=== PATIENT | male | born 1960 | race Caucasian/White ===

== ENCOUNTER 2018-10-13 15:40 | Emergency (ER) | payer BC, OTHER ==
[2018-10-13] MEDS ORDERED: Sodium Chloride 0.9% 10 ML Syringe FLUSH PRN (15:48)
--- NOTE | 2018-10-13 16:06 | CT ---
Clinical history: 58-year-old male with "stroke" clinically (drooling and flaccid left face). Ex-smoker with severe cardiac disease. Scan technique: Volume acquisition of data emergency unenhanced CT scan of the head and brain obtained with the patient was lying supine on the Siemens multi slice scanner [place], [place]. All data archived in the PACS system for storage, reformatting axial/sagittal/coronal planes and study. No previous exams this institution. Interpretation: Abnormal. 1. Bilateral cerebral cortical atrophy. Underlying mirror-image normal ventricular system. Physiologic midline pineal gland and symmetric choroid plexus calcifications. 2. *Tiny scattered areas of decreased attenuation throughout the basal ganglia bilaterally (particularly prominent anterior limb and genu of the internal capsule, on the right). Larger isolated ischemic infarct involving the periphery, convexity, left frontal lobe. 3. No sign of acute intracerebral/intraventricular/subarachnoid bleed. 4. No supratentorial or posterior fossa mass lesion. Atrophy of the vermis cerebellum. Brainstem unremarkable. 5. Uniformly thick bony calvarium without sign of skull fracture, underlying brain contusion or abnormal extracerebral/intracranial epidural or subdural hematoma. 6. Symmetric clear pneumatization of the paranasal and mastoid sinuses.. CONCLUSION: Multi-infarct ischemic disease (left parietal lobe and basal ganglia, bilaterally). No sign of acute intracranial bleed. No intracranial mass or hydrocephalus.
[2018-10-13 16:24] LABS: CHLORIDE,CL 97 mmol/L (101-111); SODIUM,NA 135 mmol/L (135-145)
--- NOTE | 2018-10-13 16:39 | CR ---
Clinical history: 58-year-old male emergency department (stroke protocol). Ex-smoker with cardiac disease. Interpretation: AP portable chest film (ED) reveals oxygen cannula, external rn cardiac rehab leads, and cardiac pacemaker (leads intact) that is new since comparison film 25 December 2013. Chronic cardiomegaly without cephalization of vascular flow or alveolar edema. Dependent new consolidative process silhouetting the left hemidiaphragm (aspiration? Old pneumonia or pleural parenchymal fibrosis? Interval improvement appearance of the contralateral right lower lobe since December 2013. Note: Asymmetric hilar masslike fullness on the right and recommend CT scan with contrast when patient stabilizes. CONCLUSION: Cardiomegaly without current signs of CHF. Abnormality left lower lobe and suspicious right hilum.
[2018-10-13 16:58] VITALS: BP 141/72
--- NOTE | 2018-10-19 04:09 | EDM.PDOC ---
Scribed by Michelle Lemons 10/13/18 [id number] for Edith Irwin NP ED HPI GENERAL MEDICAL PROBLEM - General Chief Complaint: Neuro Symptoms/Deficits Stated Complaint: STROKE Time Seen by Provider: 10/13/18 16:10 Source of Information: Reports: Patient, Family, RN, RN Notes Reviewed, Other ( Clinic staff) - History of Present Illness INITIAL COMMENTS - FREE TEXT/NARRATIVE: Pt to ER per wheelchair from [facility] with Clinic staff. Clinic staff states the patient was 1 hour late for his appointment and when he arrived he was drooling and aphasic. Clinic nurse states she talked to the patient on the phone 1 week ago and was able to completely understand his speaking. Next of kin, sister in law, was called. She states he lives alone. She states she last talked to him last night on the phone and his speech was normal. She states he has had a stroke in the past. Eye gaze to the right bilaterally. Onset: Today, Sudden - Related Data Allergies Allergy/AdvReac Type Severity Reaction Status Date / Time No Known Allergies Allergy Verified 12/18/13 09:37 Home Meds: Home Meds Albuterol [Ventolin HFA] 2 puff INH Q4H PRN 12/18/13 [History] OXcarbazepine [Oxcarbazepine] 300 mg PO BID 12/18/13 [History] Pantoprazole Sodium [Protonix] 20 mg PO DAILY 12/18/13 [History] QUEtiapine [SEROquel] 100 mg PO BID 12/18/13 [History] atorvaSTATin [Lipitor] 20 mg PO DAILY 12/18/13 [History] clonazePAM [Clonazepam] 1 mg PO BID PRN 12/18/13 [History] Carvedilol [Coreg] 3.125 mg PO BIDM #60 tablet 12/26/13 [Rx] Furosemide [Lasix] 20 mg PO BID #60 tab 12/26/13 [Rx] Potassium Chloride [Klor-Con 10] 20 meq PO BID #60 tablet.er 12/26/13 [Rx] Warfarin [Coumadin] 4 mg PO DAILY #30 tab 12/26/13 [Rx] Past Medical History Cardiovascular History: Reports: CAD, Cardiomyopathy, Heart Failure, High Cholesterol, Hypertension, Other (See Below) (cardiac LV ejections fraction 21- 40%. Mural thrombus of left ventricle.) Respiratory History: Reports: Other (See Below) (pleural effusion on right.) Gastrointestinal History: Reports: Other (See Below) (gastritis and duodenitis) Musculoskeletal History: Reports: Osteoporosis Psychiatric History: Reports: Anxiety Hematologic History: Reports: Other (See Below) (wardarin anticoagulation) - Past Surgical History GI Surgical History: Reports: Colonoscopy Social & Family History - Living Situation & Occupation Living situation: Reports: Single Occupation: Unemployed ED ROS GENERAL - Review of Systems Review Of Systems: ROS reveals no pertinent complaints other than HPI. ED EXAM, NEURO - Physical Exam Exam: See Below Exam Limited By: Altered Mental Status General Appearance: Alert, Moderate Distress Eye Exam: Bilateral Eye: PERRL (3 sluggish), Other (Right gaze) Ears: Normal External Exam, Hearing Grossly Normal Nose: Normal Inspection Throat/Mouth: Other (Drooling from left side) Head Exam: Atraumatic, Normocephalic Neck: Normal Inspection, Supple, Non-Tender, Full Range of Motion Respiratory/Chest: No Respiratory Distress, No Accessory Muscle Use, Chest Non- Tender, Crackles (bases bilaterally) Cardiovascular: Normal Peripheral Pulses, Regular Rate, Rhythm, No Edema, No Gallop, No JVD, No Murmur, No Rub GI/Abdominal: Normal Bowel Sounds, Soft, Non-Tender, Distended (Male) Exam: Deferred Rectal (Males) Exam: Deferred Neurological: Alert, Abnormal Finger to Nose, Abnormal Motor, Straight Leg Raise (L) (drift) Back Exam: Normal Inspection, Decreased Range of Motion Extremities: Normal Inspection, Limited Range of Motion (Left arm, left leg) Psychiatric: Anxious Skin Exam: Warm, Dry, Intact, Normal Color, No Rash Course - Vital Signs Last Recorded V/S: Last Vital Signs Temp 97.2 F 10/13/18 16:10 Pulse 82 10/13/18 16:10 Resp 22 H 10/13/18 16:10 BP 141/72 H 10/13/18 16:10 Pulse Ox 84 L 10/13/18 16:10 - Orders/Labs/Meds Labs: Laboratory Tests 10/13/18 10/13/18 10/13/18 Range/Units 15:50 15:50 15:50 WBC 10.8 H (5.0-10.0) 10^3/uL RBC 4.88 (4.6-6.2) 10^6/uL Hgb 14.3 (14.0-18.0) g/dL Hct 46.0 (40.0-54.0) % MCV 94.3 (80-100) fL MCH 29.3 (27.0-34.0) pg MCHC 31.1 L (33.0-35.0) g/dL Plt Count 232 (150-450) 10^3/uL Neut % (Auto) 75.1 (42.2-75.2) % Lymph % (Auto) 10.1 L (20.5-50.1) % [place] % (Auto) 12.9 H (2-8) % Eos % (Auto) 1.5 (1.0-3.0) % Baso % (Auto) 0.4 (0.0-1.0) % PT 13.2 H D (9.0-12.0) SEC INR 1.3 H (0.9-1.2) Sodium 135 (135-145) mmol/L Potassium 5.0 (3.6-5.0) mmol/L Chloride 97 L (101-111) mmol/L Carbon Dioxide 28.0 (21.0-31.0) mmol/L Anion Gap 15.0 BUN 28 H (7-18) mg/dL Creatinine 1.0 (0.6-1.3) mg/dL Est Cr Clr Drug Dosing TNP Estimated GFR (MDRD) > 60 BUN/Creatinine Ratio 28.00 Glucose 105 (74-105) mg/dL POC Glucose (70-105) mg/dl Lactic Acid (0.5-2.2) mmol/L Calcium 8.4 (8.4-10.2) mg/dl Total Bilirubin 0.6 (0.2-1.0) mg/dL AST 29 (10-42) IU/L ALT 42 (10-60) IU/L Alkaline Phosphatase 49 (42-121) IU/L Ammonia (11-35) umol/L Troponin I 0.03 H* (0.00-0.02) ng/ml B-Natriuretic Peptide (0-100) pg/ml Total Protein 6.7 (6.7-8.2) g/dl Albumin 3.1 L (3.2-5.5) g/dl Globulin 3.6 Albumin/Globulin Ratio 0.86 Urine Color (YELLOW) Urine Appearance (CLEAR) Urine pH (5.0-9.0) Ur Specific [place] (1.005-1.030) Urine Protein (NEGATIVE) Urine Glucose (UA) (NEGATIVE) Urine Ketones (NEGATIVE) Urine Occult Blood (NEGATIVE) Urine Nitrite (NEGATIVE) Urine Bilirubin (NEGATIVE) Urine Urobilinogen (0.2-1.0) mg/dL Ur Leukocyte Esterase (NEGATIVE) Urine Opiates Screen (NEGATIVE) Ur Oxycodone Screen (NEGATIVE) Urine Methadone Screen (NEGATIVE) Ur Barbiturates Screen (NEGATIVE) U Tricyclic Antidepress (NEGATIVE) Ur Phencyclidine Scrn (NEGATIVE) Ur Amphetamine Screen (NEGATIVE) U Methamphetamines Scrn (NEGATIVE) Urine MDMA Screen (NEGATIVE) U Benzodiazepines Scrn (NEGATIVE) Urine Cocaine Screen (NEGATIVE) U Marijuana (THC) Screen (NEGATIVE) Ethyl Alcohol < 5 mg/dL 10/13/18 10/13/18 10/13/18 Range/Units 15:50 15:50 15:56 WBC (5.0-10.0) 10^3/uL RBC (4.6-6.2) 10^6/uL Hgb (14.0-18.0) g/dL Hct (40.0-54.0) % MCV (80-100) fL MCH (27.0-34.0) pg MCHC (33.0-35.0) g/dL Plt Count (150-450) 10^3/uL Neut % (Auto) (42.2-75.2) % Lymph % (Auto) (20.5-50.1) % [place] % (Auto) (2-8) % Eos % (Auto) (1.0-3.0) % Baso % (Auto) (0.0-1.0) % PT (9.0-12.0) SEC INR (0.9-1.2) Sodium (135-145) mmol/L Potassium (3.6-5.0) mmol/L Chloride (101-111) mmol/L Carbon Dioxide (21.0-31.0) mmol/L Anion Gap BUN (7-18) mg/dL Creatinine (0.6-1.3) mg/dL Est Cr Clr Drug Dosing Estimated GFR (MDRD) BUN/Creatinine Ratio Glucose (74-105) mg/dL POC Glucose 106 H (70-105) mg/dl Lactic Acid 1.5 (0.5-2.2) mmol/L Calcium (8.4-10.2) mg/dl Total Bilirubin (0.2-1.0) mg/dL AST (10-42) IU/L ALT (10-60) IU/L Alkaline Phosphatase (42-121) IU/L Ammonia (11-35) umol/L Troponin I (0.00-0.02) ng/ml B-Natriuretic Peptide 761 H (0-100) pg/ml Total Protein (6.7-8.2) g/dl Albumin (3.2-5.5) g/dl Globulin Albumin/Globulin Ratio Urine Color (YELLOW) Urine Appearance (CLEAR) Urine pH (5.0-9.0) Ur Specific [place] (1.005-1.030) Urine Protein (NEGATIVE) Urine Glucose (UA) (NEGATIVE) Urine Ketones (NEGATIVE) Urine Occult Blood (NEGATIVE) Urine Nitrite (NEGATIVE) Urine Bilirubin (NEGATIVE) Urine Urobilinogen (0.2-1.0) mg/dL Ur Leukocyte Esterase (NEGATIVE) Urine Opiates Screen (NEGATIVE) Ur Oxycodone Screen (NEGATIVE) Urine Methadone Screen (NEGATIVE) Ur Barbiturates Screen (NEGATIVE) U Tricyclic Antidepress (NEGATIVE) Ur Phencyclidine Scrn (NEGATIVE) Ur Amphetamine Screen (NEGATIVE) U Methamphetamines Scrn (NEGATIVE) Urine MDMA Screen (NEGATIVE) U Benzodiazepines Scrn (NEGATIVE) Urine Cocaine Screen (NEGATIVE) U Marijuana (THC) Screen (NEGATIVE) Ethyl Alcohol mg/dL 10/13/18 10/13/18 10/13/18 Range/Units 16:10 16:10 16:51 WBC (5.0-10.0) 10^3/uL RBC (4.6-6.2) 10^6/uL Hgb (14.0-18.0) g/dL Hct (40.0-54.0) % MCV (80-100) fL MCH (27.0-34.0) pg MCHC (33.0-35.0) g/dL Plt Count (150-450) 10^3/uL Neut % (Auto) (42.2-75.2) % Lymph % (Auto) (20.5-50.1) % [place] % (Auto) (2-8) % Eos % (Auto) (1.0-3.0) % Baso % (Auto) (0.0-1.0) % PT (9.0-12.0) SEC INR (0.9-1.2) Sodium (135-145) mmol/L Potassium (3.6-5.0) mmol/L Chloride (101-111) mmol/L Carbon Dioxide (21.0-31.0) mmol/L Anion Gap BUN (7-18) mg/dL Creatinine (0.6-1.3) mg/dL Est Cr Clr Drug Dosing Estimated GFR (MDRD) BUN/Creatinine Ratio Glucose (74-105) mg/dL POC Glucose (70-105) mg/dl Lactic Acid (0.5-2.2) mmol/L Calcium (8.4-10.2) mg/dl Total Bilirubin (0.2-1.0) mg/dL AST (10-42) IU/L ALT (10-60) IU/L Alkaline Phosphatase (42-121) IU/L Ammonia 35 (11-35) umol/L Troponin I (0.00-0.02) ng/ml B-Natriuretic Peptide (0-100) pg/ml Total Protein (6.7-8.2) g/dl Albumin (3.2-5.5) g/dl Globulin Albumin/Globulin Ratio Urine Color Light yellow (YELLOW) Urine Appearance Clear (CLEAR) Urine pH 5.5 (5.0-9.0) Ur Specific [place] 1.010 (1.005-1.030) Urine Protein Negative (NEGATIVE) Urine Glucose (UA) Negative (NEGATIVE) Urine Ketones Negative (NEGATIVE) Urine Occult Blood Negative (NEGATIVE) Urine Nitrite Negative (NEGATIVE) Urine Bilirubin Negative (NEGATIVE) Urine Urobilinogen 0.2 (0.2-1.0) mg/dL Ur Leukocyte Esterase Negative (NEGATIVE) Urine Opiates Screen Negative (NEGATIVE) Ur Oxycodone Screen Negative (NEGATIVE) Urine Methadone Screen Negative (NEGATIVE) Ur Barbiturates Screen Negative (NEGATIVE) U Tricyclic Antidepress Negative (NEGATIVE) Ur Phencyclidine Scrn Negative (NEGATIVE) Ur Amphetamine Screen Negative (NEGATIVE) U Methamphetamines Scrn Negative (NEGATIVE) Urine MDMA Screen Negative (NEGATIVE) U Benzodiazepines Scrn Negative (NEGATIVE) Urine Cocaine Screen Negative (NEGATIVE) U Marijuana (THC) Screen Negative (NEGATIVE) Ethyl Alcohol mg/dL Meds: Medications Discontinued Medications Generic Name Dose Route Start Last Admin Trade Name Maddi PRN Reason Stop Dose Admin Sodium Chloride 10 ml 10/13/18 15:48 10/13/18 16:23 Saline Flush FLUSH 10 ml ASDIRECTED PRN Administration Keep Vein Open - Re-Assessments/Exams Free Text/Narrative Re-Assessment/Exam: 10/19/18 04:07 Discussed patient case with Dr. Gore who agreed to accept the patient for transfer to [place] per F. Dr. Gore and I agree that the patient is not a candidate for TPA at this time due to anticoagulant use, previous stroke. NIH score 21 Departure - Departure Time of Disposition: 17:02 Disposition: DC/Tfer to Acute Hospital 02 Condition: Poor Clinical Impression: Ischemic stroke - Discharge Information *PRESCRIPTION DRUG MONITORING PROGRAM REVIEWED*: No *COPY OF PRESCRIPTION DRUG MONITORING REPORT IN PATIENT ROBERT: No Forms: ED Department Discharge, Interfacility Transfer EMTALA I have read and agree with the documentation that has been completed regarding this visit. By signing this record, I attest that the documentation was completed in my physical presence and is an accurate record of the encounter.
== END 2018-10-13 17:02 ==
LOC: DL.ED 15:40
DX: I63.9 Cerebral infarction, unspecified (principal); I25.10 Atherosclerotic heart disease of native coronary artery without angina pectoris; E78.00 Pure hypercholesterolemia, unspecified; I50.9 Heart failure, unspecified; F41.9 Anxiety disorder, unspecified; Z79.899 Other long term (current) drug therapy
CPT/HCPCS: 36415; 70450; 71045; 80053; 80305; 81003; 82140; 82962; 83605; 83880; 84484; 85025; 85610; 93005; 99285; G0480

== ENCOUNTER 2019-10-13 05:48 | Day surgery (SDC) | payer BC ==
[~2019-10-13 05:48] MED LIST: Midazolam 1 MG/ML 2 ML SDV ONE; fentaNYL 100 MCG/2 ML SDV ONE
[2019-10-13] MEDS ORDERED: fentaNYL 100 MCG/2 ML SDV IV ONE ×3 (05:49→06:39)
[2019-10-13] MEDS ORDERED: Midazolam 1 MG/ML 2 ML SDV IV ONE ×6 (05:49→06:51)
[2019-10-13] MEDS ORDERED: Sodium Chloride 0.9% 10 ML Syringe FLUSH PRN (07:28)
[2019-10-13] MEDS ORDERED: Dextrose 5%-0.45% NaCl 1,000 ML IV SCH (07:30)
--- NOTE | 2019-10-13 08:03 | OR ---
DATE: 10/13/2019 PROCEDURE: Total colonoscopy and cold snare polypectomy. INSTRUMENT USED: PCF-H190DL Olympus video colonoscope. PREMEDICATIONS: Fentanyl 100 mcg intravenous, Versed 3.5 mg intravenous, nasal O2 cannula. The procedure was done under pulse oximetry, BP recording, and button tufting machine operator. INDICATION: The patient with rectal bleeding. Colonoscopic examination is done for detection of any polypoid lesions and removal, endoscopic hemostasis therapy if needed. DESCRIPTION OF PROCEDURE: Initial rectal exam showed polyp that could be felt at the fingertip. Rigid anoscopy showed 5 mm sized benign-appearing polyp. Cold snare polypectomy was done. The tissue was retrieved and sent for histopathology. The colonoscope was passed with ease up to the ileocecal area. Photographs were taken of the normal-appearing cecum, identified by landmarks of appendiceal orifice and double-bulged ileocecal folds. No bleeding was noted from any visualized areas at the commencement of the examination. No stricture. No vascular ectasia. No large isolated ulcerations seen. No evidence of diffuse inflammatory bowel disease in the form of friability, contact bleeding, or ulcerations. The bowel preparation was found to be adequate, [place] scale 2 in all the regions, total score 6. Probing the proximal sides of folds and flexures using adequate distention and clearing up the stool material, withdrawal of the scope was made, cecum to rectum time over 6 minutes. No bleeding was noted from any of the visualized areas at the completion of examination. IMPRESSION: 1. Internal hemorrhoids. 2. Rectal polyp. The patient tolerated the procedure well. [facility] /[id number]
[2019-10-13 09:38] VITALS: BP 100/58; PULSE 50
== END 2019-10-13 09:06 | disposition home or self-care (01) ==
LOC: DL.ENDO 05:48
PROVIDERS: ATTEND Internal Medicine Gastroenterology
DX: K62.1 Rectal polyp (principal); K64.8 Other hemorrhoids; E66.09 Other obesity due to excess calories; I25.10 Atherosclerotic heart disease of native coronary artery without angina pectoris; E78.5 Hyperlipidemia, unspecified; G47.33 Obstructive sleep apnea (adult) (pediatric); M81.0 Age-related osteoporosis without current pathological fracture; F41.1 Generalized anxiety disorder; I11.0 Hypertensive heart disease with heart failure; I50.9 Heart failure, unspecified; F17.210 Nicotine dependence, cigarettes, uncomplicated; Z95.5 Presence of coronary angioplasty implant and graft; Z95.0 Presence of cardiac pacemaker; Z86.73 Personal history of transient ischemic attack (TIA), and cerebral infarction without residual deficits; Z98.890 Other specified postprocedural states; Z96.649 Presence of unspecified artificial hip joint; Z68.30 Body mass index [BMI] 30.0-30.9, adult
CPT/HCPCS: 45385; J2250; J3010; J7042

== ENCOUNTER 2024-03-01 15:07 | Emergency (ER) | payer MEDICAID ==
[2024-03-01] MEDS: Aspirin 81 MG Tab.Chew PO ONE (15:30)
[2024-03-01 15:32] LABS: BASOPHILS PERCENT AUTO 0.4 % (0.0-1.0); EOSINOPHILS PERCENT AUTO 1.6 % (1.0-3.0); HEMATOCRIT 40.3 % (40.0-54.0); HEMOGLOBIN 13.2 g/dL (14.0-18.0); LYMPHOCYTES PERCENT AUTO 15.5 % (20.5-50.1); MEAN CORPUSCULAR HEMOGLOBIN 31.3 pg (27.0-34.0); MEAN CORPUSCULAR HGB CONC 32.8 g/dL (33.0-35.0); MEAN CORPUSCULAR VOLUME 95.5 fL (80-100); MONOCYTES PERCENT AUTO 13.3 % (2-8); NEUTROPHILS PERCENT AUTO 69.2 % (42.2-75.2); PLATELET COUNT,PLT 164 10^3/uL (150-450); RED BLOOD CELL COUNT 4.22 10^6/uL (4.6-6.2); WHITE BLOOD CELL COUNT,WBC 10.8 10^3/uL (5.0-10.0)
[2024-03-01 15:52] LABS: PROTHROMBIN TIME 10.3 SEC (9.0-12.0); PTT,PARTIAL THROMBOPLSTIN TIME 24.1 SEC (22.0-34.0)
[2024-03-01 15:54] LABS: A/G RATIO 1.1; ALBUMIN 3.6 g/dL (3.4-5.0); ANION GAP 14.9 mEq/L (7-13); BILIRUBIN TOTAL 0.6 mg/dL (0.2-1.0); BUN/CREATININE RATIO 15.1 (No establ ref range); CALCIUM 8.9 mg/dL (8.5-10.1); CREATININE 0.86 mg/dL (0.70-1.30); EST CRCL DRUG DOSING (CG) 90.63 mL/min; POTASSIUM,K 3.9 mmol/L (3.5-5.1); PROTEIN TOTAL,TP 6.9 g/dL (6.4-8.2)
[2024-03-01] MEDS: fentaNYL 100 MCG/2 ML SDV IVPUSH ONE ×2 (15:56→16:44)
[2024-03-01] MEDS: Sodium Chloride 0.9% 10 ML Syringe FLUSH PRN (15:57)
[2024-03-01] MEDS: Iopamidol 755 Mg/ML 100 ML Bottle IVPUSH ONE (15:57)
[2024-03-01 16:21] VITALS: BP 108/61; PULSE 66
[2024-03-01] MEDS: GI Cocktail Oral Solution 30 ML PO ONE (16:43)
[2024-03-01] MEDS: Ketorolac 30 MG/ML SDV IVPUSH ONE (16:43)
== END 2024-03-01 17:25 | disposition home or self-care (01) ==
LOC: DL.ED 15:07
DX: R12 Heartburn (principal); R07.89 Other chest pain; M25.512 Pain in left shoulder; Z79.899 Other long term (current) drug therapy
CPT/HCPCS: 36415; 71045; 71275; 80053; 83690; 83880; 84484; 85025; 85610; 85730; 87635; 87804; 93005; 96374; 96375; 96376; 99285; A9270; J1885; J3010; Q9967; J3490; U0002